=== PATIENT | male | born 1975 | race Caucasian/White ===

== ENCOUNTER 2018-09-07 15:28 | Inpatient (IN) | payer BC, MEDICAID ==
[~2018-09-07] VITALS: Ht 190.5 cm; Wt 91.0 kg
[2018-09-07] MEDS ORDERED: PROZ10 PO (16:20)
[2018-09-07] MEDS ORDERED: DEXT10TA4 PO (16:21)
[2018-09-07 16:56] LABS: BASOPHILS % (AUTO) 0.5 % (0.0-2.0); EOSINOPHILS % (AUTO) 0.8 % (1.0-6.0); HEMATOCRIT 47.1 % (41-53); HEMOGLOBIN 15.9 g/dL (13.5-17.5); LYMPHOCYTES # (AUTO) 2.3 K/uL (1.0-4.8); LYMPHOCYTES % (AUTO) 30.5 % (22.0-44.0); MEAN CORPUSCULAR HEMOGLOBIN 31.3 pg (26.0-34.0); MEAN CORPUSCULAR HGB CONC 33.7 G/dL (31.0-37.0); MEAN CORPUSCULAR VOLUME 93 fL (80-100); MONOCYTES # (AUTO) 0.7 K/uL (0.1-1.0); MONOCYTES % (AUTO) 9.9 % (2.0-9.0); NEUTROPHILS # (AUTO) 4.3 K/uL (1.8-7.7); NEUTROPHILS % (AUTO) 58.3 % (40.0-70.0); PLATELET COUNT (AUTO) 242 K/uL (150-450); RED BLOOD CELL COUNT(AUTO) 5.07 MIL/uL (4.50-5.90)
[2018-09-07 16:57] LABS: ANION GAP 9 mmol/L (8-16); CALCIUM, TOTAL 8.6 mg/dL (8.8-10.5); CARBON DIOXIDE 30 mmol/L (22-29); CHLORIDE 104 mmol/L (98-107); CREATININE 0.95 mg/dL (0.60-1.30); GLOMERULAR FILTR. RATE CALC > 60 mL/min (>60); GLUCOSE,RANDOM 94 mg/dL (70-110); POTASSIUM 4.3 mmol/L (3.5-5.1); SODIUM SERUM 143 mmol/L (136-145); UREA NITROGEN, BLOOD 6 mg/dL (7-18)
[2018-09-07 17:02] LABS: ALANINE AMINOTRANSFERASE 46 U/L (12-78); ALBUMIN 4.1 g/dL (3.4-5.0); ALKALINE PHOSPHATASE 48 U/L (46-116); ASPARTATE AMINOTRANSFERASE 30 U/L (15-37); BILIRUBIN,TOTAL 0.4 mg/dL (0.1-1.0); TOTAL PROTEIN, SERUM 7.1 g/dL (6.4-8.2)
[2018-09-07 17:13] LABS: ACETAMINOPHEN < 2 mcg/mL (10-30)
[2018-09-07 17:31] LABS: AMPHET/METH SCREEN,URINE NEGATIVE (NEGATIVE); BARBITURATE SCREEN, URINE NEGATIVE (NEGATIVE); BENZODIAZEPINES SCREEN,URINE NEGATIVE (NEGATIVE); CANNABINOID SCREEN,URINE POSITIVE (NEGATIVE); COCAINE SCREEN,URINE NEGATIVE (NEGATIVE); METHADONE SCREEN, URINE NEGATIVE (NEGATIVE); OPIATE SCREEN,URINE NEGATIVE (NEGATIVE)
[2018-09-07 17:35] LABS: PHENCYCLIDINE SCREEN,URINE NEGATIVE (NEGATIVE)
[2018-09-07 17:58] LABS: SALICYLATE < 2.8 mg/dL (2.8-20.0)
[2018-09-07] MEDS ORDERED: HALOPERIDOL 5 MG TABLET PO PRN (22:15)
[2018-09-07] MEDS: LORazepam 2 MG TABLET PO PRN (23:09)
[2018-09-07] MEDS: ZOLPIDEM TARTRATE 10 MG TABLET PO PRN (23:09)
[2018-09-08 08:00] VITALS: BP 123/76
[2018-09-08 08:51] LABS: HEMOGLOBIN A1C 5.2 % (4.5-6.2)
[2018-09-08] MEDS: LORazepam 2 MG TABLET PO PRN (08:56)
[2018-09-08 09:30] LABS: CHOL/HDL RATIO 3.3 (4.2-7.3); FREE T4 (FREE THYROXINE) 0.97 ng/dL (0.76-1.46); THYROID STIMULATING HORMONE 1.53 uIU/mL (0.36-3.74)
[2018-09-08] MEDS: BuPROPion HCL XL 150 MG ER TABLET PO SCH (14:08)
[2018-09-08] MEDS: ZOLPIDEM TARTRATE 10 MG TABLET PO PRN (20:20)
[2018-09-08 22:13] VITALS: BP 122/81
[2018-09-09] MEDS: BuPROPion HCL XL 150 MG ER TABLET PO SCH (08:56)
[2018-09-09 09:00] VITALS: BP 120/73
[2018-09-09 17:32] VITALS: BP 113/51
[2018-09-09] MEDS: ZOLPIDEM TARTRATE 10 MG TABLET PO PRN (20:23)
[2018-09-10] MEDS: BuPROPion HCL XL 150 MG ER TABLET PO SCH (09:01)
[2018-09-10 09:56] VITALS: BP 124/70
[2018-09-10 16:59] VITALS: BP 128/70
[2018-09-10] MEDS: ZOLPIDEM TARTRATE 10 MG TABLET PO PRN (21:01)
[2018-09-11 01:05] VITALS: BP 129/90
[2018-09-11] MEDS: LORazepam 2 MG TABLET PO PRN (01:09)
[2018-09-11 08:56] VITALS: BP 122/70
[2018-09-11] MEDS: BuPROPion HCL XL 150 MG ER TABLET PO SCH (08:56)
[2018-09-11] MEDS ORDERED: BUPR-93 PO (10:21)
== END 2018-09-11 13:40 | disposition home or self-care (01) | DRG 885 ==
LOC: EMS 15:30 → AHU 09-08 06:54 → 3EX 09-08 15:55
PROVIDERS: ATTEND Psychiatry & Neurology Psychiatry
DX: F33.2 Major depressive disorder, recurrent severe without psychotic features (principal); E83.51 Hypocalcemia; F12.10 Cannabis abuse, uncomplicated; F90.9 Attention-deficit hyperactivity disorder, unspecified type; Z81.8 Family history of other mental and behavioral disorders; Z83.3 Family history of diabetes mellitus
CPT/HCPCS: 83036; 84439; 84443; G0378; G0480; G0481